=== PATIENT | male | born 1930 | race Caucasian/White ===

== ENCOUNTER 2016-11-25 17:56 | Emergency (ER) | payer OTHER ==
[2016-11-25 18:08] VITALS: TEMP 97.7
--- NOTE | 2016-11-25 18:21 | EDPHY ---
H & P Time Seen by Provider: 11/25/16 18:21 HPI/ROS: CHIEF COMPLAINT: "My bowels are locked up" HISTORY OF PRESENT ILLNESS: This 86-year-old man presents with a feeling constipation with no bowel movement for 5 days. He has some vague abdominal discomfort but no pain nausea vomiting or fever. No rectal pain. He has a history of prostate disease but no change in urinary symptoms. No bloating and no melena or blood per rectum. Symptoms since last Tuesday. Not better after trying Ex-Lax and Colace. REVIEW OF SYSTEMS: Eye: no change in vision ENT: no sore throat Cardiac: no chest pain or syncope Pulmonary: no cough or SOB Abdomen: No vomiting or diarrhea Musculoskeletal: no back pain Skin: no rash Neuro: no headache Constitutional: no fever : no urinary symptoms A comprehensive 10 point review of systems is otherwise negative aside from elements mentioned in the history of present illness. PAST MEDICAL HISTORY: Includes hypertension and CHF, prostate removal, cholecystectomy, hernia operation. Social history: Visiting from [place] General Appearance: Alert and conversant, cooperative. Eyes: No scleral icterus. ENT, Mouth: Normal mucous membranes. Respiratory: Normal respiratory effort, breath sounds equal, lungs are clear to auscultation. Cardiovascular: Regular rate and rhythm. Gastrointestinal: Abdomen is soft and non tender. Normal bowel sounds. Rectal exam performed by myself shows a lot of hard stool in the vault. Neurological: Alert and oriented x3. Normally conversant. Face symmetric, normal movement and sensation in all extremities. Skin: Warm and dry, no rashes. Musculoskeletal: No peripheral edema and no joint swelling. Psychiatric: Not agitated. Emergency Department course/MDM: Procedure: Limited ultrasound of bladder. Indication: Constipation, history of prostatic hypertrophy, suprapubic fullness. Findings: No urine in the bladder, no bladder outlet obstruction. Interpretation: No evidence urinary retention. Images personally obtained and interpreted by myself. Images archived. Patient had manual disimpaction performed by myself. Large amount of stool was removed. This was followed by an enema. 1916: Had bowel movement, feels better, wants to go. I think at this point bowel obstruction or surgical abdomen is unlikely. Smoking Status: Never smoked Constitutional: Initial Vital Signs Temperature (C) 36.5 C 11/25/16 18:05 Heart Rate 89 11/25/16 18:05 Respiratory Rate 16 11/25/16 18:05 Blood Pressure 154/78 H 11/25/16 18:05 O2 Sat (%) 94 11/25/16 18:05 O2 Delivery Mode Room Air Allergies/Adverse Reactions: No Known Allergies Allergy (Unverified 11/25/16 18:05) Medical Decision Making Differential Diagnosis: Differential considered including but not limited to constipation, bowel obstruction, bladder outlet obstruction, volvulus or ileus. - Data Points Laboratory Results: Laboratory Results 11/25/16 18:25 11/25/16 18:25 11/25/16 11/25/16 18:25 18:25 WBC 6.75 10^3/uL 10^3/uL (3.80-9.50) RBC 3.91 10^6/uL L 10^6/uL (4.40-6.38) Hgb 13.2 g/dL L g/dL (13.7-17.5) Hct 37.7 % L % (40.0-51.0) MCV 96.4 fL fL (81.5-99.8) MCH 33.8 pg pg (27.9-34.1) MCHC 35.0 g/dL g/dL (32.4-36.7) RDW 13.6 % % (11.5-15.2) Plt Count 292 10^3/uL 10^3/uL (150-400) MPV 9.1 fL fL (8.7-11.7) Neut % (Auto) 69.0 % % (39.3-74.2) Lymph % (Auto) 15.7 % % (15.0-45.0) Brooke % (Auto) 12.0 % % (4.5-13.0) Eos % (Auto) 2.2 % % (0.6-7.6) Baso % (Auto) 0.7 % % (0.3-1.7) Nucleat RBC Rel Count 0.0 % % (0.0-0.2) Absolute Neuts (auto) 4.65 10^3/uL 10^3/uL (1.70-6.50) Absolute Lymphs (auto) 1.06 10^3/uL 10^3/uL (1.00-3.00) Absolute Monos (auto) 0.81 10^3/uL H 10^3/uL (0.30-0.80) Absolute Eos (auto) 0.15 10^3/uL 10^3/uL (0.03-0.40) Absolute Basos (auto) 0.05 10^3/uL 10^3/uL (0.02-0.10) Absolute Nucleated RBC 0.00 10^3/uL 10^3/uL (0-0.01) Immature Gran % 0.4 % % (0.0-1.1) Immature Gran # 0.03 10^3/uL 10^3/uL (0.00-0.10) Sodium 136 mEq/L mEq/L (134-144) Potassium 4.1 mEq/L mEq/L (3.5-5.2) Chloride 101 mEq/L mEq/L (97-110) Carbon Dioxide 21 mEq/l L mEq/l (22-31) Anion Gap 14 mEq/L mEq/L (8-16) BUN 30 mg/dL H mg/dL (7-23) Creatinine 1.2 mg/dL mg/dL (0.7-1.3) Estimated GFR 58 Glucose 114 mg/dL H mg/dL (70-100) Calcium 9.4 mg/dL mg/dL (8.5-10.4) Departure - Departure Disposition: Home, Routine, Self-Care Clinical Impression: Constipation Qualifiers: Constipation type: unspecified constipation type Qualified Code(s): K59.00 - Constipation, unspecified Condition: Good Instructions: Constipation (ED) Referrals: Patient,NotPresent [Unknown] - As per Instructions Allan Thomas MD [Medical Doctor] - As per Instructions
[2016-11-25 18:54] LABS: % IMMATURE GRANULYOCYTES 0.4 % (0.0-1.1); ABSOLUTE IMMATURE GRANULOCYTES 0.03 10^3/uL (0.00-0.10); ADD DIFF? NO; ADD MORPH? NO; ADD SCAN? NO; ATYPICAL LYMPHOCYTE FLAG 10 (0-99); FRAGMENT RBC FLAG 0 (0-99); HEMATOCRIT 37.7 % (40.0-51.0); HEMOGLOBIN 13.2 g/dL (13.7-17.5); LEFT SHIFT FLG 0 (0-99); LIPEMIA HEMOLYSIS FLAG 90 (0-99); MEAN CELL HEMOGLOBIN 33.8 pg (27.9-34.1); MEAN CELL VOLUME 96.4 fL (81.5-99.8); MEAN PLATELET VOLUME 9.1 fL (8.7-11.7); PLATELET CLUMPS FLAG 0 (0-99); PLATELET COUNT 292 10^3/uL (150-400); RED BLOOD CELL COUNT 3.91 10^6/uL (4.40-6.38); RED CELL DISTRIBUTION WIDTH 13.6 % (11.5-15.2)
[2016-11-25 19:05] LABS: ANION GAP 14 mEq/L (8-16); CALCIUM 9.4 mg/dL (8.5-10.4); CARBON DIOXIDE 21 mEq/l (22-31); CHLORIDE 101 mEq/L (97-110); CREATININE 1.2 mg/dL (0.7-1.3); GLOMERULAR FILTRATION RATE 58; GLUCOSE 114 mg/dL (70-100); POTASSIUM 4.1 mEq/L (3.5-5.2); SODIUM 136 mEq/L (134-144)
[2016-11-25 19:27] VITALS: BP 132/70; PULSE 98; RESP 17; O2SAT 92
== END 2016-11-25 19:26 | disposition home or self-care (01) ==
DX: K59.00 Constipation, unspecified (principal); I10 Essential (primary) hypertension; I50.9 Heart failure, unspecified; Z90.49 Acquired absence of other specified parts of digestive tract